=== PATIENT | male | born 1935 | race Caucasian/White ===

== ENCOUNTER 2017-01-02 09:36 | Inpatient (IN) | payer MEDICARE, OTHER ==
[2016-12-22 12:47] LABS: BASOPHILS 0.2 %; BASOPHILS ABSOLUTE 0.01 10/3/uL (0.0-0.16); EOSINOPHILS 0.9 %; EOSINOPHILS ABSOLUTE 0.06 10/3/uL (0.0-0.53); HEMATOCRIT 40.2 % (40.0-51.0); HEMOGLOBIN 13.4 g/dL (13.6-17.8); IMMATURE GRANULOCYTES 0.2 %; IMMATURE GRANULOCYTES ABSOLUTE 0.01 10/3/uL (0.0-0.11); LYMPHOCYTES 16.2 %; LYMPHOCYTES ABSOLUTE 1.05 10/3/uL (0.67-4.30); MEAN CORPUS HGB CONC 33.3 g/dL (32.0-36.0); MEAN CORPUSCULAR HEMOGLOB 30.7 pg (26.0-34.0); MEAN PLATELET VOLUME 11.7 fL (9.2-13.0); MONOCYTES 9.9 %; MONOCYTES ABSOLUTE 0.64 10/3/uL (0.21-1.20); NEUTROPHILS 72.6 %; NEUTROPHILS ABSOLUTE 4.72 10/3/uL (2.02-8.40); PLATELET COUNT 217 10/3/uL (150-400); RBC DISTRIBUTION WIDTH 13.8 % (12.0-16.0); RED CELL COUNT 4.37 10/6/uL (4.7-6.1); WHITE BLOOD CELLS 6.5 10/3/uL (4.5-10.5)
[2016-12-22 12:48] LABS: MANUAL DIFF NO %
[2016-12-22 12:52] LABS: INTERNATIONAL NORMAL RATI 1.1 UNITS (-); PROTIME (NOT ORD) 14.1 SEC (12.0-14.5)
[2016-12-22 12:55] LABS: ASCORBIC ACID (UR NOT ORDER) NEG (NEG); BILIRUBIN, URINE NEGATIVE (NEG); KETONE, URINE NEGATIVE (NEG); LEUKOCYTE ESTERASE(NOT OR SMALL (NEG); WBC (NOT ORDERED) (RFLEX) 2 (0-5)
[2016-12-22 13:00] LABS: A/G RATIO 1.4 (0.7-1.9); ALBUMIN 4.2 G/DL (3.5-5.0); ALKALINE PHOSPHATASE 95 U/L (45-117); BUN (BLOOD UREA NITROGEN) 15 MG/DL (6-23); CALCIUM, SERUM 9.8 MG/DL (8.5-10.4); CHLORIDE, SERUM 102 MMOL/L (96-112); CO2 (CARBON DIOXIDE) 32 MMOL/L (24-34); CREATININE 0.81 MG/DL (0.70-1.30); GFR AFRICAN AMERICAN 95 ML/MIN (>=60); GFR NON AFRICAN AMERICAN 82 ML/MIN (>=60); GLOBULIN 2.9 G/DL (2.5-4.1); GLUCOSE, SERUM 106 MG/DL (60-99); POTASSIUM, SERUM 4.8 MMOL/L (3.5-5.3); SGOT(AST) 21 U/L (5-40); SGPT(ALT) 29 U/L (5-65); SODIUM, SERUM 141 MMOL/L (135-148); TOTAL BILIRUBIN 1.4 MG/DL (0-1.2); TOTAL PROTEIN 7.1 G/DL (6.0-8.5)
[2016-12-22 13:06] LABS: B NATRIURETIC PEPTIDE (BNP) 131.5 PG/ML (< 100.0)
[2016-12-22 21:55] LABS: GLYCOHEMOGLOBIN (HbA1c) 5.8 % (4.7-6.1)
--- NOTE | ~2017-01-02 | OP ---
Record Of Operation [place] [address] [place]. [address] NAME: KATRINA GARCIA : 33 STATUS : ADM IN PAT#: [id number] AGE: 81 ADM/REG DATE : 01/02/17 MR#: [id number] REPORT SERV DATE: 01/02/17 DICTATED BY: TAL MOROCHO DATE: 01/02/17 REPORT STATUS : Draft TRANSCRIBED BY: MODL DATE: 01/02/17 DATE OF PROCEDURE: 01/02/2017 PROCEDURE PERFORMED: 1. Transcatheter aortic valve implantation using a 26 mm Fox STEPHEN S3 valve from a right transfemoral approach. 2. Temporary transvenous pacemaker placement from the right IJ to the right ventricle. 3. Transthoracic echocardiography. 4. Ascending aortogram. 5. Bilateral iliac angiogram. 6. ProGlide Closure x2, right femoral artery successful. 7. Angio-Seal 6-Burmese Closure left femoral artery successful. SURGEONS: 1. Tal Morocho M.D. 2. Daniel Walton M.D. 3. Yuan Vital M.D. 4. Dr. Singh. TICKET CLERK: Mariana. ECHOCARDIOGRAPHY: Sj Salter M.D., Ph.D, F.A.C.C. SPECIMEN REMOVED: None. FLUOROSCOPY TIME: 15.3 minutes, mGy 1363. ESTIMATED BLOOD LOSS: Less than 50 mL. CONTRAST: 85 mL, nonionic. COMPLICATIONS: None. PREOPERATIVE DIAGNOSES: 1. Severe aortic stenosis with aortic valve area 0.8 sq cm of catheterization. 2. Symptomatic with syncope. 3. STS score of 3.7% mortality and 19.5% morbidity and mortality. He had additional adverse features including frailty with very poor strength, failing his walk test, and dementia. 4. Dementia. 5. Diabetes mellitus, type 2. 6. Hypertension. 7. Hyperlipidemia. POSTOPERATIVE DIAGNOSES: 1. Record Of Operation [address] [place]. [address] NAME: KATRINA GARCIA : 33 STATUS : ADM IN PAT#: [id number] AGE: 81 ADM/REG DATE : 01/02/17 MR#: [id number] REPORT SERV DATE: 01/02/17 DICTATED BY: TAL MOROCHO DATE: 01/02/17 REPORT STATUS : Draft TRANSCRIBED BY: MODL DATE: 01/02/17 2. Severe aortic stenosis with aortic valve area 0.8 sq cm of catheterization. 3. Symptomatic with syncope. 4. STS score of 3.7% mortality and 19.5% morbidity and mortality. He had additional adverse features including frailty with very poor strength, failing his walk test, and dementia. 5. Dementia. 6. Diabetes mellitus, type 2. 7. Hypertension. 8. Hyperlipidemia. 9. No significant aortic insufficiency postoperatively by echocardiography or angiography. DATA FOR THE REGISTRY: Time of valve deployment 1444 hours, the rapid pacing time 54 seconds. AI index of 46. Preprocedure pressure gradient 34 mean, 31 peak. Cardiac output 4.1 L/minute, aortic valve 0.7 sq cm. Postprocedure mean gradient of 4, peak gradient of 0, cardiac output of 4.7 L/minute, aortic valve area 3.9 sq cm. BACKGROUND: Mr. Garcia is a very pleasant 81-year-old white man with aortic stenosis who has been symptomatic with syncope. He had moderately increased surgical risk with STS score of 3.7% mortality and 19.5% morbidity and mortality. He was seen by two cardiac surgeons, Dr. Singh and Dr. Vital, who felt that he was at higher surgical risk due to his dementia, frailty, very poor strength, and failed walk test. There was a desire to avoid bypass pump due to his dementia. The risks, benefits, and complication of transcatheter aortic valve implantation was discussed with the patient and his family as well as his alternatives including the surgical aortic valve replacement and medical therapy. The patient and family wished to pursue transcatheter valve implantation. An informed written consent was obtained. TECHNIQUE: After informed consent was obtained from Mr. Garcia and his family, he was brought to the hybrid suite on the afternoon of 01/02/2017, in the fasting state. The time- out was performed and correct patient and operative plan were confirmed. The patient was prepped and draped in the usual sterile fashion. Anesthesia had placed a right IJ introducer and a [place] catheter. Pacing catheter was placed in the body, but not in the ventricle. Under fluoroscopic guidance, the pacing catheter was advanced to the RV position. Threshold was checked, which was less than 0.8 milliamps and this was set aside. Next, attention was turned to the groin areas, which were prepped and draped in the usual sterile fashion. Local anesthesia was accomplished using 1% lidocaine. Using the modified Seldinger technique and a micropuncture set, a 6-Burmese sheath was placed in the right femoral artery and left femoral artery, both show excellent blood return. Femoral angiograms were obtained, which demonstrated good sticks in the common femoral artery thought suitable for closure. Next, a 6-Burmese pigtail catheter was advanced over a flexible J-guidewire to the central aorta under fluoroscopic guidance. Guidewire was withdrawn, catheter double flushed. Pressure recording was obtained and cineangiography of the ascending aorta was performed. Angles were obtained. Next, ProGlide sutures were placed in the right femoral artery at 10 o'clock and 2 o'clock in the usual fashion and left in place. The sheath was exchanged for an Fox sheath, which was double flushed and left in place. The patient was heparinized to an ACT of greater than 250. Next, A 6-Burmese AL1 diagnostic catheter was advanced to the ascending aorta under fluoroscopic guidance. The Record Of [facility] [address] [place]. [address] NAME: KATRINA GARCIA : 33 STATUS : ADM IN [facility]#: [id number] AGE: 81 ADM/REG DATE : 01/02/17 MR#: [id number] REPORT SERV DATE: 01/02/17 DICTATED BY: TAL MOROCHO DATE: 01/02/17 REPORT STATUS : Draft TRANSCRIBED BY: MODJames DATE: 01/02/17 catheter was drawn, pressure was obtained. Using a straight guidewire, the aortic valve was crossed and the catheter was advanced to the LV position. Using an exchange J guidewire, the catheter was exchanged for a pigtail catheter and simultaneous LV and aortic pressures were then obtained. Cardiac output was performed. A preshaped extra stiff wire is placed in the left ventricle and the catheter was withdrawn from the body. Next, a 26 mm Fox STEPHEN S3 valve was selected and brought to the table, orientation was confirmed, and the valve was then advanced all over the wire to the descending aorta under fluoroscopic guidance. There was severe tortuosity of the descending and ascending aorta. The balloon was then brought back into the valve in the usual fashion. The valve was then advanced around the arch using the flexion on the delivery system in the NIGERIEN projection. The angle was then changed to the deployment angle and the valve was placed in the aortic valve position. The pusher was then brought back, fine positioning was performed. When all was in readiness, the sequence was commenced. Respirations were held. Rapid pacing was performed. The pressure fell. The valve was deployed with complete balloon and valve expansion. The balloon was deflated and pacing was ceased. Respirations were resumed. The balloon was then brought back to the descending aorta. The patient tolerated this well. There was good position under fluoroscopy. No significant aortic insufficiency by aortography. Transthoracic echocardiogram was performed and demonstrated no significant aortic insufficiency. Next, the pigtail catheter was replaced and simultaneous LV and aortic pressures and cardiac output was performed. There was no significant gradient. Pullback recording was obtained and the pressures matched in the aorta. The catheter was then withdrawn from the body. The Fox sheath was then removed from the body. The ProGlide closures were tied. Good hemostasis was achieved. There were no bleeding and no hematoma. Followup angiogram demonstrated good patency of both iliac arteries. There was no evidence of dissection or distal embolization. The left femoral artery sheath was then removed and closed using a 6-Burmese Angio-Seal device. There were no bleeding and no hematoma. The Waycross-Israel catheter was removed under fluoroscopic guidance. The pacer was left in place. Threshold was checked, which was again less than 0.8 milliamps. This was set to demand mode 5 milliamp output rate [address] The patient tolerated the procedure well without apparent complication. He was then returned to his room in good condition for access management. Recommendations were for Plavix 75 mg p.o. daily for six months, aspirin for one month, and to start Coumadin anticoagulation for baseline paroxysmal atrial fibrillation identified on Holter monitoring and echocardiographic followup, also close observation for bradycardia given his right bundle-branch block. BN/MODL Tal Morocho M.D. / [id number] CC: Minnie Lara AZHAR S. Record Of [facility] [address] [place]. [address] NAME: KATRINA GARCIA : 33 STATUS : ADM IN PAT#: [id number] AGE: 81 ADM/REG DATE : 01/02/17 MR#: [id number] REPORT SERV DATE: 01/02/17 DICTATED BY: TAL MOROCHO DATE: 01/02/17 REPORT STATUS : Draft TRANSCRIBED BY: MODL DATE: 01/02/17 Andrew Lira M.D.
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
[~2017-01-02 09:36] MED LIST: AMB10 PO; CELEXA10 PO; CLARIT10 PO; FISH-EPA1000 MG PO; FLOMAX4 PO; LIPITOR20 PO; MULTIPLE VIT PO; OS500+D PO; PRILO PO; PRIN10 PO; PROSCAR5 PO; ZOCOR80 MG PO
[2017-01-02 17:34] LABS: HEMATOCRIT 37.8 % (40.0-51.0); HEMOGLOBIN 12.8 g/dL (13.6-17.8)
[2017-01-02 17:41] LABS: INTERNATIONAL NORMAL RATI 1.4 UNITS (-)
[2017-01-02 17:43] LABS: BUN (BLOOD UREA NITROGEN) 15 MG/DL (6-23); CHLORIDE, SERUM 104 MMOL/L (96-112); CO2 (CARBON DIOXIDE) 28 MMOL/L (24-34); CREATININE 0.66 MG/DL (0.70-1.30); GFR AFRICAN AMERICAN 104 ML/MIN (>=60); GFR NON AFRICAN AMERICAN 89 ML/MIN (>=60); GLUCOSE, SERUM 102 MG/DL (60-99); POTASSIUM, SERUM 3.9 MMOL/L (3.5-5.3); SODIUM, SERUM 140 MMOL/L (135-148)
[2017-01-02 17:45] LABS: CALCIUM, SERUM 8.7 MG/DL (8.5-10.4)
[2017-01-02 17:52] LABS: PROTIME (NOT ORD) 16.9 SEC (12.0-14.5)
[2017-01-02 17:55] LABS: PARTIAL THROMBO TIME > 150.0 SEC (22.5-37.2)
[2017-01-03 03:43] LABS: BASOPHILS 0.1 %; BASOPHILS ABSOLUTE 0.01 10/3/uL (0.0-0.16); EOSINOPHILS 0 %; HEMATOCRIT 35.7 % (40.0-51.0); HEMOGLOBIN 12.1 g/dL (13.6-17.8); IMMATURE GRANULOCYTES 0.2 %; IMMATURE GRANULOCYTES ABSOLUTE 0.02 10/3/uL (0.0-0.11); LYMPHOCYTES 5.5 %; LYMPHOCYTES ABSOLUTE 0.45 10/3/uL (0.67-4.30); MANUAL DIFF NO %; MEAN CORPUS HGB CONC 33.9 g/dL (32.0-36.0); MEAN CORPUSCULAR HEMOGLOB 30.6 pg (26.0-34.0); MEAN CORPUSCULAR VOLUME 90.2 fL (80-100); MONOCYTES 8.3 %; MONOCYTES ABSOLUTE 0.68 10/3/uL (0.21-1.20); NEUTROPHILS 85.9 %; NEUTROPHILS ABSOLUTE 7.02 10/3/uL (2.02-8.40); PLATELET COUNT 151 10/3/uL (150-400); RBC DISTRIBUTION WIDTH 13.8 % (12.0-16.0); RED CELL COUNT 3.96 10/6/uL (4.7-6.1); WHITE BLOOD CELLS 8.2 10/3/uL (4.5-10.5)
[2017-01-03 03:46] LABS: INTERNATIONAL NORMAL RATI 1.2 UNITS (-); PROTIME (NOT ORD) 15.3 SEC (12.0-14.5)
[2017-01-03 03:54] LABS: BUN (BLOOD UREA NITROGEN) 16 MG/DL (6-23); CALCIUM, SERUM 8.4 MG/DL (8.5-10.4); CHLORIDE, SERUM 107 MMOL/L (96-112); CO2 (CARBON DIOXIDE) 27 MMOL/L (24-34); CREATININE 0.53 MG/DL (0.70-1.30); GFR AFRICAN AMERICAN 113 ML/MIN (>=60); GFR NON AFRICAN AMERICAN 98 ML/MIN (>=60); GLUCOSE, SERUM 109 MG/DL (60-99); POTASSIUM, SERUM 3.7 MMOL/L (3.5-5.3); SODIUM, SERUM 141 MMOL/L (135-148)
[2017-01-03] MEDS ORDERED: ASAB PO (11:03)
[2017-01-03] MEDS ORDERED: PLAVIX PO (11:04)
[2017-01-03] MEDS ORDERED: C5 (11:05)
== END 2017-01-03 14:28 | disposition home or self-care (01) | DRG 267 ==
LOC: SDC/OF 09:36 → CVICU 16:16
PROVIDERS: Thoracic Surgery (Cardiothoracic Vascular Surgery)
PROC: B24BZZ4 Ultrasonography of Heart with Aorta, Transesophageal (ICD-10-PCS; 2017-01-02)
PROC: 02RF38Z Replacement of Aortic Valve with Zooplastic Tissue, Percutaneous Approach (ICD-10-PCS; principal; 2017-01-02 14:30)
PROC: 5A1223Z Performance of Cardiac Pacing, Continuous (ICD-10-PCS; 2017-01-02 14:30)
DX: I35.0 Nonrheumatic aortic (valve) stenosis (principal); F03.90 Unspecified dementia, unspecified severity, without behavioral disturbance, psychotic disturbance, mood disturbance, and anxiety; R55 Syncope and collapse; I45.10 Unspecified right bundle-branch block; I10 Essential (primary) hypertension; E78.00 Pure hypercholesterolemia, unspecified; Z79.82 Long term (current) use of aspirin; Z79.01 Long term (current) use of anticoagulants; Z79.899 Other long term (current) drug therapy
CPT/HCPCS: 36415; 71010; 71020; 80048; 80053; 81001; 82330; 82803; 82947; 82962; 83036; 83735; 83880; 84132; 84295; 85014; 85018; 85025; 85347; 85610; 85730; 86850; 86900; 86901; 87086; 87641; 93005; 93306; 93312; 93320; 93325; A9270-GY; C1769; J0690; J2250; J2370; J3010; J3475; J3480